=== PATIENT | male | born 1970 ===

== ENCOUNTER 2025-04-09 06:36 | Day surgery (SDC) | payer OTHER ==
[2025-04-05 09:04] LABS: URINE APPEARANCE Clear; URINE BILIRRUBIN Negative (NEGATIVE); URINE BLOOD Small; URINE COLOR Yellow; URINE GLUCOSE Negative (NEGATIVE); URINE KETONE Negative (NEGATIVE); URINE LEUKOCYTE Negative; URINE NITRATE Negative; URINE PROTEIN Negative (NEGATIVE); URINE UROBILINOGEN 0.2 E.U./dl
[2025-04-05 09:06] LABS: URINE BACTERIA 7.3 uL (0.0-1933); URINE RBC 25.7 uL (0.0-20.8); URINE WBC 3.3 uL (0.0-23.2)
[2025-04-05 09:13] LABS: BASO % 0.7 % (0.1-1.2); EOS # 0.23 (0.04-0.54); HEMATOCRIT 45.9 % (40.1-51.0); HEMOGLOBIN 15.2 g/dL (13.7-17.5); LYMPH # 2.82 (1.18-3.74); MEAN CORPUSCULAR HEMOGLOBIN 29.2 pg (25.6-32.2); MONO # 0.85 (0.24-0.82); MONO % 7.2 % (4.7-12.5); NEUT # 7.73 (1.56-6.13); NEUT % 65.8 % (34.0-71.1); PLATELET COUNT 376 K/uL (163-369); RED BLOOD COUNT 5.21 M/uL (4.63-6.08); RED CELL DISTRIBUTION WIDTH 13.7 % (11.6-14.4)
[2025-04-05 09:21] VITALS: BP 149/81
[2025-04-05 09:56] LABS: ALBUMIN 3.5 gm/dL (3.4-5.0); CALCIUM 9.8 mg/dL (8.5-10.1); CREATININE SERUM 0.79 mg/dL (0.70-1.30); GFR 101.46; PHOSPHOROUS 3.7 mg/dL (2.5-4.9); POTASSIUM 4.31 mEq/L (3.5-5.1)
[2025-04-05 10:05] LABS: INR 1.04; PARTIAL THROMBOPLASTIN TIME 27.9 SECONDS (22.0-34.0); PROTHROMBIN TIME 11.3 SECONDS (9.0-11.5)
[~2025-04-09] VITALS: Ht 162.6 cm; Wt 70.3 kg
[~2025-04-09 06:36] MED LIST: INGREZZA; LOSARTAN POTASS50 MG; [UNRECOGNIZED DRUG - OTHER]; albuterol
[2025-04-09] MEDS ORDERED: CEFAZOLIN SODIUM 1,000 MG VIAL ONE (10:23)
[2025-04-09] MEDS ORDERED: EPINEPHRINE HCL/PF 1 MG/ML AMPUL ONE (11:44)
[2025-04-09] MEDS ORDERED: POVIDONE-IODINE 118 ML BOTT TOP ONE (11:44)
[2025-04-09] MEDS ORDERED: LIDOCAINE HCL 1%/EPINEPHRINE 20ML VIAL IJ ONE (11:45)
[2025-04-09] MEDS ORDERED: CIPROFLOXACIN2.5 ML OTIC (12:46)
[2025-04-09] MEDS ORDERED: CEPHALEXIN500 M1 PO (12:46)
[2025-04-09] MEDS ORDERED: MORPHINE SULFATE 2 MG/ML CARTRIDGE IV ONE (14:00)
== END 2025-04-09 14:55 | disposition home or self-care (01) ==
LOC: CIR.AMB 06:36
PROVIDERS: ATTEND Otolaryngology Otology & Neurotology
DX: H90.12 Conductive hearing loss, unilateral, left ear, with unrestricted hearing on the contralateral side (principal); H80.92 Unspecified otosclerosis, left ear; H72.92 Unspecified perforation of tympanic membrane, left ear